=== PATIENT | male | born 1970 | race Caucasian/White ===

== ENCOUNTER 2017-07-15 16:31 | Emergency (ER) | payer SELFPAY ==
[2017-07-15] MEDS: IBUPROFEN 800 MG TABLET. PO (17:38)
== END 2017-07-15 18:07 | disposition home or self-care (01) ==
LOC: ER 16:31
DX: S80.01XA Contusion of right knee, initial encounter (principal); I10 Essential (primary) hypertension; G89.29 Other chronic pain; W22.8XXA Striking against or struck by other objects, initial encounter; Y93.89 Activity, other specified; Y99.8 Other external cause status; Y92.89 Other specified places as the place of occurrence of the external cause
CPT/HCPCS: 73562; 99284

== ENCOUNTER 2020-04-08 05:04 | Emergency (ER) | payer SELFPAY ==
[~2020-04-08] VITALS: Ht 193 cm; Wt 86.4 kg
[~2020-04-08 05:04] MED LIST: ATOR20TA PO; LISI10TA16 PO; TRAM50TA PO
[2020-04-08 05:10] VITALS: BP 212/114
[2020-04-08] MEDS ORDERED: IBUP-1060 PO (05:24)
[2020-04-08] MEDS ORDERED: LORA2TAB89 PO (05:24)
--- NOTE | 2020-04-08 05:29 | ED.ADGEN ---
Past Medical History Past Medical History: Anxiety, Hypertension, Other Additional Past Medical Histor: CHRONIC PAIN Past Surgical History: No Surgical History Additional Past Surgical Histo: CARDAIC CATH Smoking Status: Current Every Day Smoker Alcohol Use: None Drug Use: None General Adult EDM: Chief Complaint: LOWER EXT PAIN HPI: HPI: Patient is a 49 year old male coming in for right low back pain rating down his right leg. Patient states the pain is been there for about 4 days. Prior to the pain he had been lifting a lot of heavy things at work. Has a history of prior episodes in the past. Denies any fall or injury. Denies any popping or sudden onset of pain. Says pain was keeping him from sleeping tonight so he came in but says that after getting up walking around his pain is much better. Denies any recent fevers, weight loss, bowel or bladder dysfunction, history of IV drug use. Patient has a history of hypertension has not been taking his medications has not been follow-up with a primary care provider. Patient states he has a known history of bulging disks at L4 Review of Systems: Review of Systems: All other systems within normal limits except for as noted in the HPI Allergies: Allergies: Allergies Coded Allergies Type Severity Reaction Last Updated Verified No Known Drug Allergies 11/06/13 No Physical Exam: PE: Constitutional: Well developed, well nourished, no acute distress, non-toxic appearance. [] HENT: Normocephalic, atraumatic, bilateral external ears normal, oropharynx moist, no oral exudates, nose normal. [] Eyes: PERRLA, EOMI, conjunctiva normal, no discharge. [] Neck: Normal range of motion, no tenderness, supple, no stridor. [] Cardiovascular:Heart rate regular rhythm, no murmur [] Lungs & Thorax: Bilateral breath sounds clear to auscultation [] Abdomen: Bowel sounds normal, soft, no tenderness, no masses, no pulsatile masses. [] Skin: Warm, dry, no erythema, no rash. [] Back: Low right lumbar tenderness, positive supine leg raise test on the right. [] Extremities: No tenderness, no cyanosis, no clubbing, ROM intact, no edema. [] Neurologic: Alert and oriented X 3, normal motor function, normal sensory function, no focal deficits noted. [] Psychologic: Affect normal, judgement normal, mood normal. [] EKG: EKG: [] Heart Score: Risk Factors: Risk Factors: DM, Current or recent (<one month) smoker, HTN, HLP, family history of CAD, obesity. Risk Scores: Score 0 - 3: 2.5% MACE over next 6 weeks - Discharge Home Score 4 - 6: 20.3% MACE over next 6 weeks - Admit for Clinical Observation Score 7 - 10: 72.7% MACE over next 6 weeks - Early Invasive Strategies Radiology/Procedures: Radiology/Procedures: [] Course & Med Decision Making: Course & Med Decision Making No point spinal tenderness, acute on chronic back pain exacerbated by lifting. [] Dragon Disclaimer: Dragon Disclaimer: This electronic medical record was generated, in whole or in part, using a voice recognition dictation system. Departure Departure Impression: Primary Impression: Radiculopathy of leg Disposition: 01 DC HOME SELF CARE/HOMELESS Condition: STABLE Patient Instructions: Back Exercises Additional Instructions: [facility] [address] [place] [address] [facility] [address] [place] [address] [facility] [address] [facility] [place] [address] [facility] [address] [place] [address] [facility] [address] [place] [address] [facility] [address] [place] [address] [facility] [address] [place] [address] [facility] [address] [place] [address] [facility] [address] [place] [address] [facility] [address] [place] [address] Scripts Ibuprofen (IBUPROFEN) 800 Mg Tablet 800 MG PO PRN Q8HRS PRN for INFLAMMATION for 10 Days, #20 TAB Prov: CASSI LI MD 04/08/20 Lorazepam (ATIVAN) 2 Mg Tablet 2 MG PO HS for muscle spasm for 7 Days, #7 TAB Prov: CASSI LI MD 04/08/20 CASSI LI MD Apr 08, 2020 05:29
== END 2020-04-08 05:33 | disposition home or self-care (01) ==
LOC: ER 05:04
DX: M54.16 Radiculopathy, lumbar region (principal); F41.9 Anxiety disorder, unspecified; I10 Essential (primary) hypertension; G89.29 Other chronic pain; F17.200 Nicotine dependence, unspecified, uncomplicated; Z98.890 Other specified postprocedural states
CPT/HCPCS: 99283